=== PATIENT | female | born 1935 | race Caucasian/White ===

== ENCOUNTER 2018-10-25 10:28 | Day surgery (SDC) | payer OTHER ==
[~2018-10-25] VITALS: Ht 160 cm; Wt 68.9 kg
[2018-10-25] MEDS ORDERED: FAMOTIDINE PF 20 MG/2 ML VIAL ONE (13:56)
[2018-10-25] MEDS ORDERED: LR 1,000 ML IV SCH (14:07)
[2018-10-25] MEDS ORDERED: MEPERIDINE HCL/PF 25 MG/ML DISP.SYRIN IVP PRN (14:15)
[2018-10-25] MEDS ORDERED: HYDROmorphone 1 MG INJ. 1 MG/ML AMPUL IVP PRN (14:15)
[2018-10-25] MEDS ORDERED: HYDROmorphone 2 MG/ML VIAL IVP PRN ×2 (14:15)
[2018-10-25] MEDS ORDERED: LR 1,000 ML IV.SOLN IV ONE (15:40)
[2018-10-25] MEDS ORDERED: LIDOCAINE/EPI 1% 1:100000 20 ML VIAL INJ ONE (15:40)
[2018-10-25] MEDS ORDERED: ROCURONIUM BROMIDE 10 MG/ML (ZEMURON) ONE (15:40)
[2018-10-25] MEDS ORDERED: DEXAMETHASONE SOD PHOSPHATE 4 MG/ML VIAL ONE (15:40)
[2018-10-25] MEDS ORDERED: OXYMETAZOLINE HCL 0.05% NASAL SPRAY NS ONE (15:40)
[2018-10-25] MEDS ORDERED: MIDAZOLAM HCL 5 MG/ML VIAL (VERSED) IV ONE (15:40)
[2018-10-25] MEDS ORDERED: PROPOFOL 200MG/ 20ML VIAL (DIPRIVAN) IV ONE (15:40)
[2018-10-25] MEDS ORDERED: MUPIROCIN 2% TOPICAL OINTMENT 22 GM ONE (15:40)
[2018-10-25] MEDS ORDERED: KETOROLAC TROMETHAMINE 15 MG VIAL ONE (15:40)
[2018-10-25] MEDS ORDERED: WATER FOR IRRIGATION,STERILE 1,000 ML IRRIG.SOLN IR ONE (15:40)
[2018-10-25] MEDS ORDERED: NS IRRIG SOLN 1000 ML IR ONE (15:40)
[2018-10-25] MEDS ORDERED: ONDANSETRON HCL 4 MG/2 ML VIAL ONE (15:40)
[2018-10-25] MEDS ORDERED: NS 250 ML IV.SOLN IV ONE (15:40)
[2018-10-25] MEDS ORDERED: fentaNYL CITRATE 250 MCG/5 ML AMP ONE (15:40)
[2018-10-25] MEDS ORDERED: SEVOFLURANE 15 MIN GAS INH ONE (15:40)
[2018-10-25] MEDS ORDERED: HYDROCORTISONE SOD SUCC 100 MG/2 ML VIAL ONE (15:40)
[2018-10-25] MEDS ORDERED: HYDROmorphone 1 MG INJ. 1 MG/ML AMPUL ONE (16:41)
[2018-10-25 18:35] VITALS: BP_SYST 133
== END 2018-10-25 18:45 | disposition home or self-care (01) ==
LOC: SMU 10:28 → SDS 10:28
PROVIDERS: ATTEND Otolaryngology
DX: J34.2 Deviated nasal septum (principal); J32.9 Chronic sinusitis, unspecified; I10 Essential (primary) hypertension; E03.9 Hypothyroidism, unspecified; K21.9 Gastro-esophageal reflux disease without esophagitis; M06.9 Rheumatoid arthritis, unspecified
CPT/HCPCS: 30520; 31254; 31267; 31298; 87070; 87075; 87101; 87186; 88305; 88311; C1726; J1100; J1170; J1720; J1885; J2250; J2405; J2704; J3010; J3490; J7050; J7120